=== PATIENT | male | born 1955 | race Caucasian/White ===

== ENCOUNTER → 2018-05-16 | Outpatient (CLI) | payer OTHER ==
[~2018-05-16] MED LIST: MOTRIN IB200 M1 PO; NOHOMEMEDICATIONS
[2018-05-16 08:42] LABS: CREATININE 1.3 mg/dL (0.6-1.3)
== END ==
LOC: M.LAB 08:00 → M.CT 09:00
PROVIDERS: Nurse Practitioner Family
DX: N20.0 Calculus of kidney (principal); R91.1 Solitary pulmonary nodule; E04.1 Nontoxic single thyroid nodule; R91.8 Other nonspecific abnormal finding of lung field

== ENCOUNTER → 2018-05-23 | Outpatient (CLI) | payer OTHER | LOC: M.ULTRA 08:52 | DX: E04.1 Nontoxic single thyroid nodule (principal); R92.8 Other abnormal and inconclusive findings on diagnostic imaging of breast ==

== ENCOUNTER → 2018-05-31 | Outpatient (CLI) | payer OTHER ==
--- NOTE | 2018-06-08 11:08 | PATH ---
[address] [address] PATHOLOGY RPT PROCEDURE Name: ROCÍO TRENT Room: [facility]#: [id number] Admission: 05/31/18 Date of : 51 Discharge: Report #: [id number] Path Case #: [id number] Note [facility] Accession Number: [id number] TESTS RESULT FLAG UNITS REF RANGE LAB Clinician Provided Cytology Information No. of containers..01 Other (Miscellaneous) Source: THYROID DIAGNOSIS: LT THYROID INCONCLUSIVE. [place] CATEGORY III. ATYPIA OF UNDETERMINED SIGNIFICANCE. THIS INTERPRETATION INCLUDES EVALUATION OF A CELL BLOCK. SEE COMMENT. COMMENT: This FNA specimen contains scattered nuclear pseudo inclusions, as well as rare nuclear grooves and microfollicles. These findings are compatible with atypia of undetermined significance. The RNAretain vial will be sent for studies. Dr. Tom Merino Co-review Pathologist ICD10: 02 R89.6 Signed out by: Galo Aguirre MD, Pathologist NPI- [id number] Performed by: Cristian Dee, [employer] ([facility]) Gross description: 01 11ML, RED, CLOUDY /LCS FLAG LEGEND: L-Low Normal,H-High Normal,LL-Alert Low,HH-Alert High <-Panic Low,>-Panic High,A-Abnormal,AA-Critical Abnormal Performed at: 01 [facility] [address] [place] [address] Jarret Leon MD, 02 [facility] [address] [address] Tania Ellison MD, Specimen Comment: A courtesy copy of this report has been sent to Specimen Comment: [phone]. Specimen Comment: Report sent to Specimen Comment: A duplicate report has been generated due to demographic updates. [address] [address] PATHOLOGY RPT PROCEDURE Name: ROCÍO TRENT Room: [facility]#: [id number] Admission: 05/31/18 Date of : 51 Discharge: Report #: [id number] Path Case #: [id number] Performed at: 01 [facility] [place] [address], [place], [place] [id number] MD Jarret Leon MD Phone: [phone]
== END ==
LOC: M.ULTRA 07:54
DX: E04.1 Nontoxic single thyroid nodule (principal)

== ENCOUNTER → 2019-01-03 | Outpatient (CLI) | payer OTHER ==
[2019-01-03 10:26] LABS: CREATININE 1.5 mg/dL (0.6-1.3); PHOSPHORUS* 2.9 mg/dL (2.5-4.9)
== END ==
LOC: M.LAB 09:29
PROVIDERS: Otolaryngology
DX: E21.3 Hyperparathyroidism, unspecified (principal)

== ENCOUNTER 2019-08-25 22:45 | Emergency (ER) | payer OTHER, MEDICARE ==
[~2019-08-25] VITALS: Ht 175.3 cm; Wt 99.8 kg
[2019-08-25] MEDS ORDERED: COZAAR 25MG TAB25 M1 PO (22:58)
[2019-08-25] MEDS ORDERED: ALLOPURINOL 10100 M3 PO (23:00)
[2019-08-25 23:28] LABS: ABSOLUTE EOSINOPHILS 0.1 thou/uL (0.0-0.7); ABSOLUTE LYMPHOCYTES 2.1 thou/uL (0.8-5.3); ABSOLUTE MONOCYTES 0.8 thou/uL (0.0-1.2); ABSOLUTE NEUTROPHILS 5.5 thou/uL (1.6-8.1); BASOPHILS 0.5 %; EOSINOPHILS 1.5 %; HEMOGLOBIN 17.9 gm/dL (14.0-18.0); LYMPHOCYTES 24.8 %; MCH 30.4 pg (26.0-34.0); MCHC 33.7 g/dL (28.0-37.0); MCV 90.3 fL (80.0-100.0); MONOCYTES 8.9 %; MPV 7.8 fl. (7.2-11.1); NUCLEATED RBCS 0 /100WBC; PLATELET COUNT* 181 thou/uL (150-400); POLYS 64.3 %; RBC 5.87 mil/uL (4.50-6.00); WBC 8.6 thou/uL (4.0-11.0)
[2019-08-25 23:36] LABS: APTT 28.3 Seconds (25.0-31.3); INR 1.1; PROTIME 11.5 Seconds (9.20-11.50)
[2019-08-25 23:42] LABS: CALCIUM 8.4 mg/dL (8.5-10.1); CREATININE 1.3 mg/dL (0.6-1.3); POTASSIUM 4.4 mmol/L (3.5-5.1)
[2019-08-25 23:46] LABS: ALBUMIN 3.9 g/dL (3.4-5.0); TOTAL BILIRUBIN 0.4 mg/dL (<0.1-1.0); TOTAL PROTEIN 8.3 g/dL (6.4-8.2)
[2019-08-26 02:16] VITALS: BP 145/88
== END 2019-08-26 02:18 | disposition still patient (30) ==
LOC: M.GI 22:45 → M.ERS 22:45 → M.GI 08-26 02:18
PROVIDERS: Personal Emergency Response Attendant
DX: T17.228A Food in pharynx causing other injury, initial encounter (principal); Z87.442 Personal history of urinary calculi; X58.XXXA Exposure to other specified factors, initial encounter; Y93.89 Activity, other specified; Y92.89 Other specified places as the place of occurrence of the external cause; Y99.8 Other external cause status

== ENCOUNTER 2019-12-31 14:30 | Emergency (ER) | payer MEDICARE ==
[~2019-12-31] VITALS: Ht 175.3 cm; Wt 103.6 kg
[~2019-12-31 14:30] MED LIST changes: +ALLOPURINOL 10100 M3 PO; +COZAAR 25MG TAB25 M1 PO
[2019-12-31 15:24] LABS: ABSOLUTE BASOPHILS 0.1 thou/uL (0.0-0.2); ABSOLUTE EOSINOPHILS 0.1 thou/uL (0.0-0.7); ABSOLUTE LYMPHOCYTES 1.1 thou/uL (0.8-5.3); ABSOLUTE MONOCYTES 0.5 thou/uL (0.0-1.2); ABSOLUTE NEUTROPHILS 4.9 thou/uL (1.6-8.1); EOSINOPHILS 2.1 %; HEMATOCRIT 52.5 % (42.0-52.0); HEMOGLOBIN 17.7 gm/dL (14.0-18.0); LYMPHOCYTES 16.8 %; MCH 30.9 pg (26.0-34.0); MCHC 33.7 g/dL (28.0-37.0); MCV 91.6 fL (80.0-100.0); MONOCYTES 6.8 %; MPV 8.1 fl. (7.2-11.1); NUCLEATED RBCS 0 /100WBC; PLATELET COUNT* 156 thou/uL (150-400); POLYS 73.3 %; RBC 5.73 mil/uL (4.50-6.00); RDW-CV 14.3 % (10.5-14.5); WBC 6.7 thou/uL (4.0-11.0)
[2019-12-31 15:33] LABS: URINE BILIRUBIN NEGATIVE (Negative); URINE BLOOD 2+ (Negative); URINE CLARITY CLEAR; URINE COLOR YELLOW; URINE GLUCOSE-RANDOM NEGATIVE (Negative); URINE KETONES NEGATIVE (Negative); URINE LEUKOCYTES-REFLEX TRACE (Negative); URINE NITRITE-REFLEX NEGATIVE (Negative); URINE PROTEIN NEGATIVE (Negative); URINE SPECIFIC GRAVITY 1.025 (1.005-1.030); URINE UROBILINOGEN 0.2 E.U./dl (0.2-1.0)
[2019-12-31 15:33] LABS: CALCIUM 8.6 mg/dL (8.5-10.1); CREATININE 1.3 mg/dL (0.6-1.3)
[2019-12-31 15:38] LABS: ALBUMIN 3.7 g/dL (3.4-5.0); TOTAL BILIRUBIN 0.8 mg/dL (<0.1-1.0); TOTAL PROTEIN 7.8 g/dL (6.4-8.2)
[2019-12-31 15:40] LABS: HYALINE CASTS 0-3 Few /LPF (None Seen); MUCUS None Seen strn/LPF (None Seen); SQUAMOUS 0-3 Few /LPF (0-3)
[2019-12-31 15:41] LABS: BACTERIA-REFLEX None Seen /HPF (None Seen); CRYSTALS None Seen /LPF (None Seen); URINE RBC 3-10 Few /HPF (0-2); URINE WBC-REFLEX 0-5 Rare /HPF (0-5)
[2019-12-31 19:37] VITALS: BP 134/89
--- NOTE | 2020-01-01 16:21 | EKG ---
[place] [address] ELECTROCARDIOGRAM REPORT Name: ROCÍO TRENT [facility] [id number] Admission: 12/31/19 Attend Phys: Discharge: 12/31/19 Date of : 51 Date of Service: 12/31/19 1518 Report #: [id number] THIS REPORT FOR: //name// [facility] ED Test Date: 2019-12-31 Test Time: 15:18:55 Pat Name: ROCÍO TRENT Department: Room: Gender: [employer] Developer: ASHLI : 1955 Requested By: Jennifer Valdes Order Number: [id number] MD: Arnold Thompson Measurements Intervals [place] Rate: 74 P: 29 [place]: 166 QRS: 6 QRSD: 100 T: -4 QT: 380 QTc: 422 Interpretive Statements Sinus rhythm Borderline T abnormalities, inferior leads Compared to ECG 09/27/2013 08:37:31 Sinus bradycardia no longer present T-wave abnormality still present Electronically Signed On 01-01-2020 16:19:18 CDT by Arnold Thompson [email or web address] <ELECTRONICALLY SIGNED> By: Arnold Thompson MD, [facility] 01/01/20 1619 1518 1518 Arnold Thompson MD, [facility] /EPI
== END 2019-12-31 19:39 | disposition short-term general hospital (02) ==
LOC: M.ERS 14:30
PROVIDERS: Personal Emergency Response Attendant
DX: N13.9 Obstructive and reflux uropathy, unspecified (principal); N20.0 Calculus of kidney